=== PATIENT | male | born 1960 | race African-American/Black ===

== ENCOUNTER 2017-08-25 11:20 | Emergency (ER) | payer SELFPAY ==
--- NOTE | 2017-08-25 11:45 | EDM.PDOC ---
ED HPI GENERAL MEDICAL PROBLEM - General Chief Complaint: Upper Extremity Injury/Pain Stated Complaint: PAIN ON FINGERTIPS Time Seen by Provider: 08/25/17 11:38 Source of Information: Reports: Patient, Family History Limitations: Reports: No Limitations - History of Present Illness INITIAL COMMENTS - FREE TEXT/NARRATIVE: History of present illness: []Patient was working on his car for several hours 4 days ago when it snowed and starting having pain to his right fingertips the next day. His pain has worsened. his fingertips have swollen and has drainage from the pad his ring fingertip. Patient's pain is severe he is unable to sleep. Not up-to-date with tetanus he denies any fevers or any pain in his arm or elsewhere. Review of systems: As per history of present illness and below otherwise all systems reviewed and negative. Past medical history: As per history of present illness and as reviewed below otherwise noncontributory. Surgical history: As per history of present illness and as reviewed below otherwise noncontributory. Social history: No reported history of drug or alcohol abuse. Family history: As per history of present illness and as reviewed below otherwise noncontributory. Physical exam: General: Well developed, well nourished in NAD HEENT: Atraumatic, normocephalic, pupils reactive, negative for conjunctival pallor or scleral icterus, mucous membranes moist, throat clear, neck supple, nontender, trachea midline. Lungs: Clear to auscultation, breath sounds equal bilaterally, chest nontender. Heart: S1S2, regular, negative for clicks, rubs, or JVD. Abdomen: Soft, nondistended, nontender. Negative for masses or hepatosplenomegaly. Negative for costovertebral tenderness. Pelvis: Stable nontender. Genitourinary: Deferred. Rectal: Deferred. Extremities: Atraumatic, negative for cords or calf pain. Neurovascular unremarkable. Neuro: Awake, alert, oriented. Cranial nerves II through XII unremarkable. Cerebellum unremarkable. Motor and sensory unremarkable throughout. Exam nonfocal. Diagnostics: [] Therapeutics: []Tetanus updated Impression: []Pulido bite right hand fingertips Plan: []Follow-up with Diamond at Dr. Watt's office on Thursday, tramadol for pain Definitive disposition and diagnosis as appropriate pending reevaluation and review of above. Right Hand Pain Score (Numeric/FACES): 9 - Related Data Allergies Allergy/AdvReac Type Severity Reaction Status Date / Time No Known Allergies Allergy Verified 08/25/17 11:38 Home Meds: Home Meds traMADol [Ultram] 50 mg PO Q8H PRN #16 tablet 08/25/17 [Rx] Social & Family History - Tobacco Use Smoking Status *Q: Current Every Day Smoker Years of Tobacco use: 2 Packs/Tins Daily: 0.5 - Caffeine Use Caffeine Use: Reports: Coffee - Recreational Drug Use Recreational Drug Use: No Review of Systems - Review of Systems Review Of Systems: See Below (See history of present illness) ED EXAM, GENERAL - Physical Exam Exam: See Below (See history of present illness) Course - Vital Signs Last Recorded V/S: Last Vital Signs Temp 98.0 F 08/25/17 11:44 Pulse 77 08/25/17 12:42 Resp 18 08/25/17 12:42 BP 160/98 H 08/25/17 12:42 Pulse Ox 95 08/25/17 11:44 - Orders/Labs/Meds Orders: Active Orders 24 hr Category Date Time Status Blood Glucose Check, Bedside [RC] ONETIME Care 08/25/17 11:48 Active Vaccines to be Administered [RC] PER UNIT ROUTINE Care 08/25/17 12:05 Active Meds: Medications Discontinued Medications Generic Name Dose Route Start Last Admin Trade Name Freq PRN Reason Stop Dose Admin Diphtheria/Tetanus/Acell Pertussis 0.5 ml 08/25/17 12:05 08/25/17 12:35 Adacel IM 08/25/17 12:06 0.5 ml .ONCE ONE Administration Tramadol HCl 50 mg 08/25/17 12:28 08/25/17 12:34 Ultram PO 08/25/17 12:29 50 mg ONETIME ONE Administration Departure - Departure Time of Disposition: 12:12 Disposition: Home, Self-Care 01 Condition: Good Clinical Impression: Frostbite of right hand Qualifiers: Encounter type: initial encounter Qualified Code(s): T33.521A - Superficial frostbite of right hand, initial encounter - Discharge Information Prescriptions: traMADol [Ultram] 50 mg PO Q8H PRN #16 tablet PRN Reason: Pain Referrals: PCP,None [Primary Care Provider] - Forms: ED Department Discharge Additional Instructions: The following information is given to patients seen in the emergency department who are being discharged to home. This information is to outline your options for follow-up care. We provide all patients seen in our emergency department with a follow-up referral. The need for follow-up, as well as the timing and circumstances, are variable depending upon the specifics of your emergency department visit. If you don't have a primary care physician on staff, we will provide you with a referral. We always advise you to contact your personal physician following an emergency department visit to inform them of the circumstance of the visit and for follow-up with them and/or the need for any referrals to a consulting specialist. The emergency department will also refer you to a specialist when appropriate. This referral assures that you have the opportunity for follow-up care with a specialist. All of these measure are taken in an effort to provide you with optimal care, which includes your follow-up. Under all circumstances we always encourage you to contact your private physician who remains a resource for coordinating your care. When calling for follow-up care, please make the office aware that this follow-up is from your recent emergency room visit. If for any reason you are refused follow-up, please contact the [facility] Emergency Department at and asked to speak to the emergency department charge nurse. Tramadol and ibuprofen for pain, follow-up with Diamond at Dr. Watt's office at 1245 on Thursday. [facility] - [facility] [address] [place] [address], [address] [place] [address] Follow-up with primary care physician for further workup of diabetes [facility] [address] [place] [id number] - My Orders Last 24 Hours: My Active Orders 08/25/17 11:48 Blood Glucose Check, Bedside [RC] ONETIME 08/25/17 12:05 Vaccines to be Administered [RC] PER UNIT ROUTINE - Assessment/Plan Last 24 Hours: My Active Orders 08/25/17 11:48 Blood Glucose Check, Bedside [RC] ONETIME 08/25/17 12:05 Vaccines to be Administered [RC] PER UNIT ROUTINE
[2017-08-25] MEDS ORDERED: Diphtheria,Pertussis(Acell),Tetanus Vaccine 0.5 ML Syringe IM ONE (12:05)
[2017-08-25] MEDS ORDERED: traMADol 50 MG Tab PO ONE (12:28)
== END 2017-08-25 13:20 | disposition home or self-care (01) ==
LOC: MW.ED 11:20
DX: T33.521A Superficial frostbite of right hand, initial encounter (principal); F17.210 Nicotine dependence, cigarettes, uncomplicated
CPT/HCPCS: 82962; 90471; 90715; 99283; A9270

== ENCOUNTER 2017-11-06 17:11 | Inpatient (IN) | payer MEDICAID ==
[2017-11-06] MEDS ORDERED: Sodium Chloride 0.9% 500 ML IV SCH (17:15)
--- NOTE | 2017-11-06 17:16 | EDM.PDOC ---
ED HPI GENERAL MEDICAL PROBLEM - General Stated Complaint: WEAKNESS/RT SHOULDER Time Seen by Provider: 11/06/17 17:16 Source of Information: Reports: Patient - History of Present Illness INITIAL COMMENTS - FREE TEXT/NARRATIVE: HISTORY AND PHYSICAL: History of present illness: Patient presents with right upper extremity weakness and dropping things this morning at 06 00 at noon today he was unable to grasp or hold a fork To lunch, symptomologyappears to have resolved since then Patient has no other complaint at current delivery is a history of diabetes and hypertension his glucoses in the 350s range Denies fever nausea vomiting diarrhea constipation chest pain shortness breath headache dizziness palpitation no bowel or urine symptoms He was able to ambulate in the ER get on the exam table he was able to undress and use his finger struck on bottom shirt on the right upper extremity which was previously week unable to grasp objects No TPA as out of the therapeutic window and stroke score is 0 at current Patient does take a daily aspirin and did take aspirin today ] Review of systems: As per history of present illness and below otherwise all systems reviewed and negative. Past medical history: As per history of present illness and as reviewed below otherwise noncontributory. Surgical history: As per history of present illness and as reviewed below otherwise noncontributory. Social history: No reported history of drug or alcohol abuse. Family history: As per history of present illness and as reviewed below otherwise noncontributory. Physical exam: HEENT: Atraumatic, normocephalic, pupils reactive, negative for conjunctival pallor or scleral icterus, mucous membranes moist, throat clear, neck supple, nontender, trachea midline. Lungs: Clear to auscultation, breath sounds equal bilaterally, chest nontender. Heart: S1S2, regular, negative for clicks, rubs, or JVD. Abdomen: Soft, nondistended, nontender. Negative for masses or hepatosplenomegaly. Negative for costovertebral tenderness. Pelvis: Stable nontender. Genitourinary: Deferred. Rectal: Deferred. Extremities: Atraumatic, negative for cords or calf pain. Neurovascular unremarkable. Neuro: Awake, alert, oriented. Cranial nerves II through XII unremarkable. Cerebellum unremarkable. Motor and sensory unremarkable throughout. Exam nonfocal. Diagnostics: [TBC CMP UA cardiac enzymes INR EKG chest [address] ] Therapeutics: [Normal saline 1 25 mL per hour ] Impression: [TIA Stroke score 0 Hyperglycemia Diabetes uncontrolled History of hypertension Definitive disposition and diagnosis as appropriate pending reevaluation and review of above. - Related Data Allergies Allergy/AdvReac Type Severity Reaction Status Date / Time No Known Allergies Allergy Verified 11/06/17 17:24 Home Meds: Home Meds Aspirin [Lo-Dose Aspirin EC] 81 mg PO DAILY 11/06/17 [History] amLODIPine [Norvasc] 5 mg PO DAILY 11/06/17 [History] metFORMIN [Glucophage] 1,000 mg PO DAILY 11/06/17 [History] Social & Family History - Tobacco Use Smoking Status *Q: Current Every Day Smoker Years of Tobacco use: 2 Packs/Tins Daily: 0.5 - Caffeine Use Caffeine Use: Reports: Coffee - Recreational Drug Use Recreational Drug Use: No ED ROS GENERAL - Review of Systems Review Of Systems: ROS reveals no pertinent complaints other than HPI. ED EXAM, GENERAL - Physical Exam Exam: See Below Course - Vital Signs Last Recorded V/S: Last Vital Signs Temp 97.5 F 11/06/17 17:19 Pulse 90 11/06/17 17:19 Resp 18 11/06/17 17:19 BP 172/96 H 11/06/17 17:19 Pulse Ox 98 11/06/17 17:19 - Orders/Labs/Meds Orders: Active Orders 24 hr Category Date Time Status EKG Documentation Completion [RC] STAT Care 11/06/17 17:15 Active Chest 1V Frontal [CR] Stat Exams 11/06/17 17:15 Taken Head wo Cont [CT] Stat Exams 11/06/17 17:15 Taken UA W/MICROSCOPIC [URIN] Stat Lab 11/06/17 17:15 Ordered Sodium Chloride 0.9% [Normal Saline] 500 ml Med 11/06/17 17:15 Active IV STAT Medication Orders Sodium Chloride (Normal Saline) 500 mls @ 999 mls/hr IV STAT ANGELA Last Admin: 11/06/17 17:57 Dose: 999 mls/hr Labs: Laboratory Tests 11/06/17 11/06/17 11/06/17 Range/Units 17:47 17:47 17:47 WBC 9.84 (4.0-11.0) K/uL RBC 5.20 (4.50-5.90) M/uL Hgb 14.3 (13.0-17.0) g/dL Hct 40.3 (38.0-50.0) % MCV 77.5 L (80.0-98.0) fL MCH 27.5 (27.0-32.0) pg MCHC 35.5 (31.0-37.0) g/dL RDW Std Deviation 36.0 (28.0-62.0) fl RDW Coeff of Perry 13 (11.0-15.0) % Plt Count 228 (150-400) K/uL MPV 10.00 (7.40-12.00) fL Neut % (Auto) 55.9 (48.0-80.0) % Lymph % (Auto) 31.3 (16.0-40.0) % Dawes % (Auto) 7.2 (0.0-15.0) % Eos % (Auto) 5.4 (0.0-7.0) % Baso % (Auto) 0.2 (0.0-1.5) % Neut # (Auto) 5.5 (1.4-5.7) K/uL Lymph # (Auto) 3.1 H (0.6-2.4) K/uL Dawes # (Auto) 0.7 (0.0-0.8) K/uL Eos # (Auto) 0.5 (0.0-0.7) K/uL Baso # (Auto) 0.0 (0.0-0.1) K/uL Nucleated RBC % 0.0 /100WBC Nucleated RBCs # 0 K/uL INR 1.09 Sodium 134 L (136-146) mmol/L Potassium 3.9 (3.5-5.1) mmol/L Chloride 102 (98-110) mmol/L Carbon Dioxide 21 (21-31) mmol/L BUN 17 (6.0-23.0) mg/dL Creatinine 1.1 (0.6-1.5) mg/dL Est Cr Clr Drug Dosing TNP Estimated GFR (MDRD) > 60.0 ml/min Glucose 345 H (60-110) mg/dL Calcium 10.3 (8.8-10.8) mg/dL Total Bilirubin 0.4 (0.1-1.5) mg/dL AST 16 (5-40) IU/L ALT 20 (8-54) IU/L Alkaline Phosphatase 85 (40-150) Creatine Kinase 68 (9-236) IU/L CK-MB (CK-2) 0.8 (0-6.6) ng/ml Troponin I < 0.10 (0.0-0.29) NG/ML Total Protein 8.4 H (6.0-8.0) g/dL Albumin 4.3 (3.5-5.0) g/dL Globulin 4.1 H (2.0-3.5) g/dL Albumin/Globulin Ratio 1.1 L (1.3-2.8) Meds: Medications Generic Name Dose Route Start Last Admin Trade Name Freq PRN Reason Stop Dose Admin Sodium Chloride 500 mls @ 999 mls/hr 11/06/17 17:15 11/06/17 17:57 Normal Saline IV 999 mls/hr STAT ANGELA Administration Discontinued Medications Generic Name Dose Route Start Last Admin Trade Name Freq PRN Reason Stop Dose Admin Insulin Human Regular 5 unit 11/06/17 17:31 11/06/17 17:57 Novolin R IVPUSH 11/06/17 17:32 5 units ONETIME ONE Administration Protocol Departure - Departure Time of Disposition: 18:43 Disposition: Refer to Observation Condition: Fair Clinical Impression: TIA (transient ischemic attack) - Discharge Information Referrals: PCP,None [Primary Care Provider] - - My Orders Last 24 Hours: My Active Orders 11/06/17 17:15 EKG Documentation Completion [RC] STAT Chest 1V Frontal [CR] Stat Head wo Cont [CT] Stat UA W/MICROSCOPIC [URIN] Stat Sodium Chloride 0.9% [Normal Saline] 500 ml IV STAT - Assessment/Plan Last 24 Hours: My Active Orders 11/06/17 17:15 EKG Documentation Completion [RC] STAT Chest 1V Frontal [CR] Stat Head wo Cont [CT] Stat UA W/MICROSCOPIC [URIN] Stat Sodium Chloride 0.9% [Normal Saline] 500 ml IV STAT
[2017-11-06] MEDS ORDERED: Insulin Regular, Human 100 Units/ML 10 ML Vial IVPUSH ONE (17:31)
[2017-11-06 18:21] LABS: CHLORIDE,CL 102 mmol/L (98-110); SODIUM,NA 134 mmol/L (136-146)
[2017-11-06] MEDS ORDERED: Ondansetron 4 MG/2 ML SDV IVPUSH PRN (19:52)
[2017-11-06] MEDS ORDERED: Morphine 2 MG/ML Syringe IVPUSH PRN (19:52)
[2017-11-06] MEDS ORDERED: Ondansetron 4 MG Tab.DIS PO PRN (19:52)
[2017-11-06] MEDS ORDERED: Acetaminophen 325 MG Tab PO PRN (19:52)
--- NOTE | 2017-11-06 20:00 | PCM.HP ---
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 with past medical history of hypertension, hyperlipidemia, and type 2 diabetes. 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 Patient states that at approximately 0600 this morning when he awoke he felt weakness on his right side stating that he "had no power". He reports that he was unable to grasp or hold onto a fork while eating but symptoms fully resolved around 1400 this afternoon. He denies any slurring of speech and states weakness was isolated to the right arm and right leg. He then proceeded to come into the emergency department for further evaluation at approximately 1700 this evening. Up until this point patient was feeling his normal self and denies any chest pain, palpitations, shortness breath, syncopal episodes, nausea , vomiting, diarrhea, sore throat, cough, or other signs of systemic infection. He has never had similar episode in the past. He does have a history of hypertension, hyperlipidemia, and type II diabetes. On initial examination in the emergency department his NIH stroke score was 0. In addition, he was out of the therapeutic window for TPA. Patient does not see a provider here in [place] but states that he takes medications regularly for his hypertension, hyperlipidemia and type 2 diabetes. He is not insulin-dependent. He has no know allergies. In the emergency department as above NIH stroke scale of 0. CBC and INR were unremarkable. CMP revealed mild hyperglycemia of 345. Chest x-ray, EKG, and head CT were unremarkable. He was given IV normal saline 500 mL bolus as well as 5 units of insulin for his hyperglycemia. Patient was admitted for suspected TIA. - Related Data Allergies/Adverse Reactions: Allergies Allergy/AdvReac Type Severity Reaction Status Date / Time No Known Allergies Allergy Verified 11/06/17 17:24 Home Medications: Home Meds Aspirin [Lo-Dose Aspirin EC] 81 mg PO DAILY 11/06/17 [History] amLODIPine [Norvasc] 5 mg PO DAILY 11/06/17 [History] metFORMIN [Glucophage] 1,000 mg PO DAILY 11/06/17 [History] Past Medical History Cardiovascular History: Reports: Hypertension Endocrine/Metabolic History: Reports: Diabetes, Type II Social & Family History - Family History Family Medical History: Noncontributory - Tobacco Use Smoking Status *Q: Current Every Day Smoker Years of Tobacco use: 2 Packs/Tins Daily: 0.5 Used Tobacco, but Quit: No Second Hand Smoke Exposure: No - Caffeine Use Caffeine Use: Reports: Coffee, Soda - Alcohol Use Date of Last Drink: 10/30/17 - Recreational Drug Use Recreational Drug Use: No H&P Review of Systems - Review of Systems: Review Of Systems: See Below General: Reports: Weakness. Denies: Fever, Chills, Malaise, Fatigue HEENT: Denies: Dysphasia, Headaches, Sore Throat Pulmonary: Denies: Shortness of Breath, Wheezing, Cough, Sputum, Hemoptysis Cardiovascular: Denies: Chest Pain, Palpitations, Lightheadedness, Syncope Gastrointestinal: Denies: Abdominal Pain, Black Stool, Bloody Stool, Diarrhea, Nausea, Vomiting Genitourinary: Denies: Dysuria, Hematuria Musculoskeletal: Denies: Neck Pain, Leg Pain Skin: Denies: Cyanosis Psychiatric: Denies: Confusion Neurological: Denies: Confusion, Dizziness, Headache, Numbness, Paresthesia, Pre -Existing Deficit, Seizure, Syncope, Tingling, Trouble Speaking, Difficulty Walking, Weakness, Change in Speech, Gait Disturbance Hematologic/Lymphatic: Denies: Anemia Immunologic: Denies: Anaphylaxis Exam - Exam Exam: See Below - Vital Signs Vital Signs: Last Vital Signs Temp 98 F 11/06/17 18:21 Pulse 91 11/06/17 18:21 Resp 16 11/06/17 18:21 BP 146/88 H 11/06/17 18:21 Pulse Ox 97 11/06/17 18:21 Weight: 84 kg - Exam Quality Assessment: DVT Prophylaxis General: Alert, Oriented, Cooperative HEENT: Conjunctiva Clear, EACs Clear, EOMI, Hearing Intact, Mucosa Moist & Callaghan , Nares Patent, Normal Nasal Septum, Posterior Pharynx Clear, PERRLA Neck: Supple, Trachea Midline, 2 Lungs: Clear to Auscultation, Normal Respiratory Effort Cardiovascular: Regular Rate, Regular Rhythm GI/Abdominal Exam: Normal Bowel Sounds, Soft, Non-Tender, No Organomegaly, No Distention (Male) Exam: Deferred Rectal (Males) Exam: Deferred Back Exam: Normal Inspection Extremities: Normal Inspection, Non-Tender, No Pedal Edema, Normal Capillary Refill Peripheral Pulses: 2+: Radial (L), Radial (R), Posterior Tibial (L), Posterior Tibial (R), Dorsalis Pedis (L), Dorsalis Pedis (R) Skin: Warm, Dry, Intact Neurological: Cranial Nerves Intact Neuro Extensive - Mental Status: Alert, Oriented x3, Normal Mood/Affect, Normal Cognition, Memory Intact Neuro Extensive - Motor, Sensory, Reflexes: CN II-XII Intact. No: Ataxia, Tongue Deviation (L), Tongue Deviation (R), Dysarthria, Receptive Aphasia, Expressive Aphasia, Facial palsy (L), Facial Palsy (R), Facial Palsy w Forehead , Facial Palsy wo Forehead, Hemeplagia (R), Hemeplagia (L), Pronator Drift (R), Pronator Drift (L), Abnormal Romberg, Abnormal Finger to Nose, Abnormal Heel to Luz, Abnormal Sensation, Abnormal Light Touch, Abnormal Motor, Babinski, Motor/ Sensory Deficits Psychiatric: Alert, Normal Affect, Normal Mood - Patient Data Lab Results Last 24 hrs: Laboratory Results - last 24 hr 11/06/17 Range/Units 18:47 POC Glucose 247 H (60-110) mg/dL Result Diagrams: 11/06/17 17:47 11/06/17 17:47 *Q Meaningful Use (ADM) - VTE *Q VTE Criteria *Q: - Stroke *Q Stroke Criteria *Q: - AMI *Q AMI Criteria *Q: - Problem List (1) Hypertension SNOMED Code(s): 26330008 ICD Code: I10 - ESSENTIAL (PRIMARY) HYPERTENSION Status: Chronic Priority : Medium Current Visit: Yes Qualifiers: Hypertension type: unspecified Qualified Code(s): I10 - Essential (primary ) hypertension (2) Hyperlipemia SNOMED Code(s): 14095307 ICD Code: E78.5 - HYPERLIPIDEMIA, UNSPECIFIED Status: Chronic Priority: Medium Current Visit: Yes Qualifiers: Hyperlipidemia type: unspecified Qualified Code(s): E78.5 - Hyperlipidemia , unspecified (3) Type 2 diabetes mellitus SNOMED Code(s): 09114021 ICD Code: E11.9 - TYPE 2 DIABETES MELLITUS WITHOUT COMPLICATIONS Status: Chronic Priority: Medium Current Visit: Yes Qualifiers: Diabetes mellitus complication status: without complication Diabetes mellitus skilled nursing insulin use: without stone breaker use Qualified Code(s): E11.9 - Type 2 diabetes mellitus without complications (4) TIA (transient ischemic attack) SNOMED Code(s): 384154126 ICD Code: G45.9 - TRANSIENT CEREBRAL ISCHEMIC ATTACK, UNSPECIFIED Status: Suspected Priority: High Current Visit: Yes Qualifiers: Transient cerebral ischemia type: unspecified Qualified Code(s): G45.9 - Transient cerebral ischemic attack, unspecified Problem List Initiated/Reviewed/Updated: Yes Orders Last 24hrs: Active Orders 24 hr Category Date Time Status Patient Status [ADT] Routine ADT 11/06/17 19:52 Ordered Antiembolic Devices [RC] PER UNIT ROUTINE Care 11/06/17 19:53 Ordered Blood Glucose Check, Bedside [RC] TIDAC Care 11/06/17 19:52 Ordered Oxygen Therapy [RC] PRN Care 11/06/17 19:52 Ordered Telemetry Monitoring [Cardiac Monitoring] [RC] . Care 11/06/17 19:59 Ordered DIRECTED Up With Assistance [RC] ASDIRECTED Care 11/06/17 19:52 Ordered VTE/DVT Education [RC] PER UNIT ROUTINE Care 11/06/17 19:52 Ordered Vital Signs [RC] Q4H Care 11/06/17 19:52 Ordered [employer] Diet [DIET] Diet 11/06/17 Dinner Ordered Ang Head w wo Cont [MR] Routine Exams 11/06/17 19:52 Ordered Ang Neck w wo Cont [MR] Routine Exams 11/06/17 19:52 Ordered Brain w wo Cont [MR] Routine Exams 11/06/17 19:52 Ordered Echo 2D wo Cont [US] Urgent Exams 11/06/17 19:52 Ordered CBC WITH AUTO DIFF [HEME] AM Lab 11/07/17 05:11 Ordered CBC WITH AUTO DIFF [HEME] AM Lab 11/08/17 05:11 Ordered COMPREHENSIVE METABOLIC PN,CMP [CHEM] AM Lab 11/07/17 05:11 Ordered COMPREHENSIVE METABOLIC PN,CMP [CHEM] AM Lab 11/08/17 05:11 Ordered LIPID PANEL [CHEM] AM Lab 11/07/17 05:11 Ordered MAGNESIUM [CHEM] AM Lab 11/07/17 05:11 Ordered PHOSPHORUS [CHEM] AM Lab 11/07/17 05:11 Ordered Acetaminophen [Tylenol] Med 11/06/17 19:52 Ordered 650 mg PO Q4H PRN Heparin Sodium Med 11/06/17 20:00 Ordered 5,000 units SUBCUT Q8H Insulin Aspart [NovoLOG] Med 11/07/17 07:30 Ordered See Protocol SUBCUT TIDAC Morphine Med 11/06/17 19:52 Ordered 2 mg IVPUSH Q2H PRN Ondansetron [Zofran ODT] Med 11/06/17 19:52 Ordered 4 mg PO Q4H PRN Ondansetron [Zofran] Med 11/06/17 19:52 Ordered 4 mg IVPUSH Q4H PRN Sequential Compression Device [OM.PC] Per Unit Routine Oth 11/06/17 19:53 Ordered Resuscitation Status Routine Resus Stat 11/06/17 19:52 Ordered Medication Orders Sodium Chloride (Normal Saline) 500 mls @ 999 mls/hr IV STAT ANGELA Last Admin: 11/06/17 17:57 Dose: 999 mls/hr Assessment/Plan Comment:: 57-year-old female admitted 11/06/17 for suspected TIA with past medical history of hypertension, hyperlipidemia, and type 2 diabetes. TIA: We'll place patient on telemetry, get a fasting lipid panel tomorrow a.m., MRI head with and without contrast, MRA head and neck with and without contrast , echocardiogram heart. Will observe overnight and possibly consult neurology tomorrow pending findings on above studies. We'll continue his aspirin 81 mg as well as his home cholesterol medication when verified. Hypertension: Currently controlled we'll continue home medication Hyperlipidemia: Lipid panel in a.m. as well as restart home cholesterol medication when verified. Type 2 diabetes: Hyperglycemic in emergency department was given [address] on insulin sliding scale medium dose TIDAC blood sugar checks. VTE Proph: SCD, Heparin Dispo: 1-2 days pending.
[2017-11-06] MEDS: Heparin Sodium 5,000 Units/ML Vial SUBCUT SCH (20:30)
[2017-11-07] MEDS: Heparin Sodium 5,000 Units/ML Vial SUBCUT SCH ×3 (04:05→20:57)
[2017-11-07 06:29] LABS: CHLORIDE,CL 105 mmol/L (98-110); SODIUM,NA 136 mmol/L (136-146)
[2017-11-07] MEDS ORDERED: Magnesium Sulfate/Water 2 GM in Premix Bag 1 BAG IV ONE (07:12)
--- NOTE | 2017-11-07 07:12 | PCM.PN ---
- General Info Date of Service: 11/07/17 Admission Dx/Problem (Free Text): Admission Diagnosis/Problem Admission Diagnosis/Problem TIA, Transient ischemic attack Subjective Update: Patient doing well this am. No return of weakness on right side. Eating and eliminating without difficulty. No chest pain, palpitations, sob. No complaints. Functional Status: Reports: Pain Controlled, Tolerating Diet, Ambulating - Review of Systems General: Denies: Fever, Weakness, Fatigue HEENT: Denies: Contact Lenses, Headaches Pulmonary: Denies: Shortness of Breath, Hemoptysis Cardiovascular: Denies: Chest Pain, Palpitations, Edema Gastrointestinal: Denies: Abdominal Pain, Constipation, Diarrhea, Nausea, Vomiting Genitourinary: Denies: Dysuria, Hematuria Musculoskeletal: Denies: Neck Pain, Leg Pain Skin: Denies: Cyanosis Neurological: Denies: Confusion, Dizziness, Headache Psychiatric: Denies: Confusion - Patient Data Vitals - Most Recent: Last Vital Signs Temp 97.8 F 11/07/17 04:00 Pulse 72 11/07/17 04:00 Resp 15 11/07/17 04:00 BP 124/71 11/07/17 04:00 Pulse Ox 95 11/07/17 04:00 Weight - Most Recent: 84 kg I&O - Last 24 Hours: Intake & Output 11/06/17 11/07/17 11/07/17 22:59 06:59 14:59 Intake Total 490 Output Total 775 Balance -285 Lab Results Last 24 Hours: Laboratory Results - last 24 hr 11/06/17 11/06/17 11/07/17 Range/Units 18:47 20:09 05:45 WBC 8.67 (4.0-11.0) K/uL RBC 5.04 (4.50-5.90) M/uL Hgb 13.8 (13.0-17.0) g/dL Hct 39.3 (38.0-50.0) % MCV 78.0 L (80.0-98.0) fL MCH 27.4 (27.0-32.0) pg MCHC 35.1 (31.0-37.0) g/dL RDW Std Deviation 36.8 (28.0-62.0) fl RDW Coeff of Perry 13 (11.0-15.0) % Plt Count 208 (150-400) K/uL MPV 10.00 (7.40-12.00) fL Neut % (Auto) 44.5 L (48.0-80.0) % Lymph % (Auto) 40.8 H (16.0-40.0) % [place] % (Auto) 7.0 (0.0-15.0) % Eos % (Auto) 7.5 H (0.0-7.0) % Baso % (Auto) 0.2 (0.0-1.5) % Neut # (Auto) 3.9 (1.4-5.7) K/uL Lymph # (Auto) 3.5 H (0.6-2.4) K/uL [place] # (Auto) 0.6 (0.0-0.8) K/uL Eos # (Auto) 0.7 (0.0-0.7) K/uL Baso # (Auto) 0.0 (0.0-0.1) K/uL Nucleated RBC % 0.0 /100WBC Nucleated RBCs # 0 K/uL Sodium (136-146) mmol/L Potassium (3.5-5.1) mmol/L Chloride (98-110) mmol/L Carbon Dioxide (21-31) mmol/L BUN (6.0-23.0) mg/dL Creatinine (0.6-1.5) mg/dL Est Cr Clr Drug Dosing mL/min Estimated GFR (MDRD) ml/min Glucose (60-110) mg/dL POC Glucose 247 H 207 H (60-110) mg/dL Calcium (8.8-10.8) mg/dL Phosphorus (2.4-4.7) mg/dL Magnesium (1.5-2.3) mEq/L Total Bilirubin (0.1-1.5) mg/dL AST (5-40) IU/L ALT (8-54) IU/L Alkaline Phosphatase (40-150) Total Protein (6.0-8.0) g/dL Albumin (3.5-5.0) g/dL Globulin (2.0-3.5) g/dL Albumin/Globulin Ratio (1.3-2.8) Triglycerides (10-190) mg/dL Cholesterol (131-240) mg/dL LDL Cholesterol, Calc (60-180) mg/dL VLDL Cholesterol (5-55) mg/dL HDL Cholesterol (40-80) mg/dL Cholesterol/HDL Ratio (3.3-6.0) 11/07/17 11/07/17 Range/Units 05:45 05:47 WBC (4.0-11.0) K/uL RBC (4.50-5.90) M/uL Hgb (13.0-17.0) g/dL Hct (38.0-50.0) % MCV (80.0-98.0) fL MCH (27.0-32.0) pg MCHC (31.0-37.0) g/dL RDW Std Deviation (28.0-62.0) fl RDW Coeff of Perry (11.0-15.0) % Plt Count (150-400) K/uL MPV (7.40-12.00) fL Neut % (Auto) (48.0-80.0) % Lymph % (Auto) (16.0-40.0) % [place] % (Auto) (0.0-15.0) % Eos % (Auto) (0.0-7.0) % Baso % (Auto) (0.0-1.5) % Neut # (Auto) (1.4-5.7) K/uL Lymph # (Auto) (0.6-2.4) K/uL [place] # (Auto) (0.0-0.8) K/uL Eos # (Auto) (0.0-0.7) K/uL Baso # (Auto) (0.0-0.1) K/uL Nucleated RBC % /100WBC Nucleated RBCs # K/uL Sodium 136 (136-146) mmol/L Potassium 4.0 (3.5-5.1) mmol/L Chloride 105 (98-110) mmol/L Carbon Dioxide 21 (21-31) mmol/L BUN 15 (6.0-23.0) mg/dL Creatinine 1.0 (0.6-1.5) mg/dL Est Cr Clr Drug Dosing 86.45 mL/min Estimated GFR (MDRD) > 60.0 ml/min Glucose 314 H (60-110) mg/dL POC Glucose 302 H (60-110) mg/dL Calcium 9.5 (8.8-10.8) mg/dL Phosphorus 3.3 (2.4-4.7) mg/dL Magnesium 1.4 L (1.5-2.3) mEq/L Total Bilirubin 0.5 (0.1-1.5) mg/dL AST 14 (5-40) IU/L ALT 19 (8-54) IU/L Alkaline Phosphatase 75 (40-150) Total Protein 7.1 (6.0-8.0) g/dL Albumin 3.8 (3.5-5.0) g/dL Globulin 3.3 (2.0-3.5) g/dL Albumin/Globulin Ratio 1.2 L (1.3-2.8) Triglycerides 368 H (10-190) mg/dL Cholesterol 186 (131-240) mg/dL LDL Cholesterol, Calc 78 (60-180) mg/dL VLDL Cholesterol 74 H (5-55) mg/dL HDL Cholesterol 34 L (40-80) mg/dL Cholesterol/HDL Ratio 5.5 (3.3-6.0) Med Orders - Current: Current Medications Acetaminophen (Tylenol) 650 mg PO Q4H PRN PRN Reason: Pain (Mild 1-3)/fever Amlodipine Besylate (Norvasc) 5 mg PO DAILY [facility] Aspirin (Halfprin) 81 mg PO DAILY [facility] Heparin Sodium (Porcine) (Heparin Sodium) 5,000 units SUBCUT Q8H [facility] Last Admin: 11/07/17 04:05 Dose: 5,000 units Sodium Chloride (Normal Saline) 500 mls @ 999 mls/hr IV STAT [facility] Last Admin: 11/06/17 17:57 Dose: 999 mls/hr Insulin Aspart (Novolog) 0 unit SUBCUT TIDAC [facility] PRN Reason: Protocol Morphine Sulfate (Morphine) 2 mg IVPUSH Q2H PRN PRN Reason: Pain (severe 7-10) Stop: 11/07/17 19:53 Ondansetron HCl (Zofran Odt) 4 mg PO Q4H PRN PRN Reason: nausea, able to take PO Ondansetron HCl (Zofran) 4 mg IVPUSH Q4H PRN PRN Reason: Nausea Discontinued Medications Insulin Human Regular (Novolin R) 5 unit IVPUSH ONETIME ONE PRN Reason: Protocol Stop: 11/06/17 17:32 Last Admin: 11/06/17 17:57 Dose: 5 units - Exam Quality Assessment: DVT Prophylaxis General: Alert, Oriented, Cooperative, No Acute Distress HEENT: Pupils Equal, Pupils Reactive, EOMI, Mucous Membr. Moist/[place] Neck: Supple, Trachea Midline, No JVD Lungs: Clear to Auscultation, Normal Respiratory Effort Cardiovascular: Regular Rate, Regular Rhythm GI/Abdominal Exam: Normal Bowel Sounds, Soft, Non-Tender, No Organomegaly, No Distention (Male) Exam: Deferred Back Exam: Normal Inspection Extremities: Normal Inspection, Non-Tender, No Pedal Edema, Normal Capillary Refill Peripheral Pulses: 2+: Radial (L), Radial (R), Posterior Tibial (L), Posterior Tibial (R), Dorsalis Pedis (L), Dorsalis Pedis (R) Skin: Warm, Dry, Intact Neurological: No New Focal Deficit, Normal Speech, Normal Tone, Strength Equal Bilateral, Sensation Intact, Cranial Nerves Intact Psy/Mental Status: Alert, Normal Affect, Normal Mood - Problem List & Annotations (1) Hypertension SNOMED Code(s): 85205061 Code(s): I10 - ESSENTIAL (PRIMARY) HYPERTENSION Status: Chronic Priority : Medium Current Visit: Yes Qualifiers: Hypertension type: unspecified Qualified Code(s): I10 - Essential (primary ) hypertension (2) Hyperlipemia SNOMED Code(s): 23138257 Code(s): E78.5 - HYPERLIPIDEMIA, UNSPECIFIED Status: Chronic Priority: Medium Current Visit: Yes Qualifiers: Hyperlipidemia type: unspecified Qualified Code(s): E78.5 - Hyperlipidemia , unspecified (3) Type 2 diabetes mellitus SNOMED Code(s): 37051995 Code(s): E11.9 - TYPE 2 DIABETES MELLITUS WITHOUT COMPLICATIONS Status: Chronic Priority: Medium Current Visit: Yes Qualifiers: Diabetes mellitus complication status: without complication Diabetes mellitus terminal carman insulin use: without terminal carman use Qualified Code(s): E11.9 - Type 2 diabetes mellitus without complications (4) TIA (transient ischemic attack) SNOMED Code(s): 633997327 Code(s): G45.9 - TRANSIENT CEREBRAL ISCHEMIC ATTACK, UNSPECIFIED Status: Suspected Priority: High Current Visit: Yes Qualifiers: Transient cerebral ischemia type: unspecified Qualified Code(s): G45.9 - Transient cerebral ischemic attack, unspecified - Problem List Review Problem List Initiated/Reviewed/Updated: Yes - My Orders Last 24 Hours: My Active Orders 11/06/17 19:52 Patient Status [ADT] Routine Blood Glucose Check, Bedside [RC] TIDAC Oxygen Therapy [RC] PRN Up With Assistance [RC] ASDIRECTED VTE/DVT Education [RC] PER UNIT ROUTINE Vital Signs [RC] Q4H Ang Head w wo Cont [MR] Routine Ang Neck w wo Cont [MR] Routine Brain w wo Cont [MR] Routine Echo 2D wo Cont [US] Urgent Acetaminophen [Tylenol] 650 mg PO Q4H PRN Morphine 2 mg IVPUSH Q2H PRN Ondansetron [Zofran ODT] 4 mg PO Q4H PRN Ondansetron [Zofran] 4 mg IVPUSH Q4H PRN Resuscitation Status Routine 11/06/17 19:53 Antiembolic Devices [RC] PER UNIT ROUTINE Sequential Compression Device [OM.PC] Per Unit Routine 11/06/17 19:59 Telemetry Monitoring [Cardiac Monitoring] [RC] . DIRECTED 11/06/17 20:00 Heparin Sodium 5,000 units SUBCUT Q8H 11/06/17 Dinner [employer] Diet [DIET] 11/07/17 07:30 Insulin Aspart [NovoLOG] See Protocol SUBCUT TIDAC 11/07/17 09:00 Aspirin [Halfprin] 81 mg PO DAILY amLODIPine [Norvasc] 5 mg PO DAILY 11/08/17 05:11 CBC WITH AUTO DIFF [HEME] AM COMPREHENSIVE METABOLIC PN,CMP [CHEM] AM - Plan Plan:: 57-year-old female admitted 11/06/17 for suspected TIA with past medical history of hypertension, hyperlipidemia, and type 2 diabetes. TIA: No return of symptoms. No significant changes on telemetry overnight. As per nursing we are unable to get MRI head with and without contrast, MRA head and neck with and without contrast until Thursday. Did talk with Dr. Mixon, neurologist Sara Allen, who stated that as long as patient is not having any new symptoms it is okay to wait until Thursday to get MRI MRA studies. Echocardiogram heart is scheduled for today as not taken last evening when initially ordered. Lipid panel revealed total cholesterol 186, LDL 78, HDL 34, Triglycerides 368. Will cont. ASA 81 mg as well as Atorvastatin 10 mg q day as home chelesterol medication is unknown. May have to increase Atorvastatin but will wait at this time. Cont. to observe. Hypertension: Currently controlled we'll continue home medication Hyperlipidemia: Total cholesterol 186, LDL 78, HDL 34, Triglycerides 368. Unable to verify home statin so started Atovastatin 10 mg po q day while inpatient. Will most likely need to start triglyceride lower agent as well before discharge. Uncontrolled Type 2 diabetes: HgbA1C 11.2 Have changed from medium dose to high dose ISS. Also consulted Diabetic education as patient most likely will need to be on Insulin in the future. VTE Proph: SCD, Heparin Dispo: 1-2 days pending.
[2017-11-07] MEDS ORDERED: Insulin Aspart 100 Units/ML 3 ML Pen SUBCUT SCH (07:30)
[2017-11-07] MEDS: Insulin Aspart 100 Units/ML 3 ML Pen SUBCUT SCH ×3 (07:53→17:22)
[2017-11-07] MEDS: amLODIPine 5 MG Tab PO SCH (10:00)
[2017-11-07] MEDS: Aspirin 81 MG Tab.EC PO SCH (10:00)
[2017-11-07] MEDS: atorvaSTATin 10 MG Tab PO SCH (20:57)
[2017-11-08] MEDS: Heparin Sodium 5,000 Units/ML Vial SUBCUT SCH ×3 (04:09→20:22)
[2017-11-08 06:43] LABS: CHLORIDE,CL 103 mmol/L (98-110); SODIUM,NA 134 mmol/L (136-146)
[2017-11-08] MEDS: Insulin Aspart 100 Units/ML 3 ML Pen SUBCUT SCH ×3 (06:51→17:17)
[2017-11-08] MEDS: amLODIPine 5 MG Tab PO SCH (08:11)
[2017-11-08] MEDS: Aspirin 81 MG Tab.EC PO SCH (08:11)
--- NOTE | 2017-11-08 09:29 | PCM.PN ---
- General Info Date of Service: 11/08/17 Admission Dx/Problem (Free Text): Admission Diagnosis/Problem Admission Diagnosis/Problem TIA, Transient ischemic attack Subjective Update: Doing well this morning. States that he still feels sometime weak with his right arm but nothing like it was on day of admission. Otherwise doing well. Denies any chest pain, palpitations, sob, eating and eliminating without difficulty. Functional Status: Reports: Pain Controlled, Tolerating Diet - Review of Systems General: Reports: Weakness. Denies: Fever, Fatigue, Malaise HEENT: Denies: Dysphasia, Headaches, Visual Changes Pulmonary: Denies: Shortness of Breath, Hemoptysis Cardiovascular: Denies: Chest Pain, Palpitations, Edema Gastrointestinal: Denies: Abdominal Pain, Constipation, Diarrhea, Nausea, Vomiting Genitourinary: Denies: Dysuria, Hematuria Musculoskeletal: Denies: Neck Pain, Leg Pain Skin: Denies: Cyanosis Neurological: Reports: Weakness. Denies: Confusion, Dizziness, Headache Psychiatric: Denies: Confusion - Patient Data Vitals - Most Recent: Last Vital Signs Temp 208.9 F H 11/08/17 08:00 Pulse 82 11/08/17 08:00 Resp 17 11/08/17 08:00 BP 124/76 11/08/17 08:11 Pulse Ox 97 11/08/17 08:00 Weight - Most Recent: 84 kg I&O - Last 24 Hours: Intake & Output 11/07/17 11/08/17 11/08/17 22:59 06:59 14:59 Intake Total 750 1000 Output Total 1000 800 Balance -250 200 Lab Results Last 24 Hours: Laboratory Results - last 24 hr 11/07/17 11/07/17 11/08/17 Range/Units 12:01 16:32 00:22 WBC (4.0-11.0) K/uL RBC (4.50-5.90) M/uL Hgb (13.0-17.0) g/dL Hct (38.0-50.0) % MCV (80.0-98.0) fL MCH (27.0-32.0) pg MCHC (31.0-37.0) g/dL RDW Std Deviation (28.0-62.0) fl RDW Coeff of [place] (11.0-15.0) % Plt Count (150-400) K/uL MPV (7.40-12.00) fL Neut % (Auto) (48.0-80.0) % Lymph % (Auto) (16.0-40.0) % [place] % (Auto) (0.0-15.0) % Eos % (Auto) (0.0-7.0) % Baso % (Auto) (0.0-1.5) % Neut # (Auto) (1.4-5.7) K/uL Lymph # (Auto) (0.6-2.4) K/uL [place] # (Auto) (0.0-0.8) K/uL Eos # (Auto) (0.0-0.7) K/uL Baso # (Auto) (0.0-0.1) K/uL Nucleated RBC % /100WBC Nucleated RBCs # K/uL Sodium (136-146) mmol/L Potassium (3.5-5.1) mmol/L Chloride (98-110) mmol/L Carbon Dioxide (21-31) mmol/L BUN (6.0-23.0) mg/dL Creatinine (0.6-1.5) mg/dL Est Cr Clr Drug Dosing mL/min Estimated GFR (MDRD) ml/min Glucose (60-110) mg/dL POC Glucose 260 H 323 H 247 H (60-110) mg/dL Calcium (8.8-10.8) mg/dL Total Bilirubin (0.1-1.5) mg/dL AST (5-40) IU/L ALT (8-54) IU/L Alkaline Phosphatase (40-150) Total Protein (6.0-8.0) g/dL Albumin (3.5-5.0) g/dL Globulin (2.0-3.5) g/dL Albumin/Globulin Ratio (1.3-2.8) 11/08/17 11/08/17 11/08/17 Range/Units 05:20 05:20 05:54 WBC 8.65 (4.0-11.0) K/uL RBC 5.07 (4.50-5.90) M/uL Hgb 13.8 (13.0-17.0) g/dL Hct 39.7 (38.0-50.0) % MCV 78.3 L (80.0-98.0) fL MCH 27.2 (27.0-32.0) pg MCHC 34.8 (31.0-37.0) g/dL RDW Std Deviation 37.1 (28.0-62.0) fl RDW Coeff of [place] 13 (11.0-15.0) % Plt Count 211 (150-400) K/uL MPV 10.10 (7.40-12.00) fL Neut % (Auto) 42.9 L (48.0-80.0) % Lymph % (Auto) 40.6 H (16.0-40.0) % [place] % (Auto) 9.0 (0.0-15.0) % Eos % (Auto) 7.4 H (0.0-7.0) % Baso % (Auto) 0.1 (0.0-1.5) % Neut # (Auto) 3.7 (1.4-5.7) K/uL Lymph # (Auto) 3.5 H (0.6-2.4) K/uL [place] # (Auto) 0.8 (0.0-0.8) K/uL Eos # (Auto) 0.6 (0.0-0.7) K/uL Baso # (Auto) 0.0 (0.0-0.1) K/uL Nucleated RBC % 0.0 /100WBC Nucleated RBCs # 0 K/uL Sodium 134 L (136-146) mmol/L Potassium 3.9 (3.5-5.1) mmol/L Chloride 103 (98-110) mmol/L Carbon Dioxide 22 (21-31) mmol/L BUN 16 (6.0-23.0) mg/dL Creatinine 1.0 (0.6-1.5) mg/dL Est Cr Clr Drug Dosing 86.45 mL/min Estimated GFR (MDRD) > 60.0 ml/min Glucose 332 H (60-110) mg/dL POC Glucose 304 H (60-110) mg/dL Calcium 9.5 (8.8-10.8) mg/dL Total Bilirubin 0.4 (0.1-1.5) mg/dL AST 14 (5-40) IU/L ALT 19 (8-54) IU/L Alkaline Phosphatase 71 (40-150) Total Protein 7.1 (6.0-8.0) g/dL Albumin 3.7 (3.5-5.0) g/dL Globulin 3.4 (2.0-3.5) g/dL Albumin/Globulin Ratio 1.1 L (1.3-2.8) Med Orders - Current: Current Medications Acetaminophen (Tylenol) 650 mg PO Q4H PRN PRN Reason: Pain (Mild 1-3)/fever Amlodipine Besylate (Norvasc) 5 mg PO DAILY [facility] Last Admin: 11/08/17 08:11 Dose: 5 mg Aspirin (Halfprin) 81 mg PO DAILY [facility] Last Admin: 11/08/17 08:11 Dose: 81 mg Atorvastatin Calcium (Lipitor) 10 mg PO BEDTIME [facility] Last Admin: 11/07/17 20:57 Dose: 10 mg Heparin Sodium (Porcine) (Heparin Sodium) 5,000 units SUBCUT Q8H [facility] Last Admin: 11/08/17 04:09 Dose: 5,000 units Sodium Chloride (Normal Saline) 500 mls @ 999 mls/hr IV STAT [facility] Last Admin: 11/06/17 17:57 Dose: 999 mls/hr Insulin Aspart (Novolog) 0 unit SUBCUT TIDAC [facility] PRN Reason: Protocol Last Admin: 11/08/17 06:51 Dose: 12 units Ondansetron HCl (Zofran Odt) 4 mg PO Q4H PRN PRN Reason: nausea, able to take PO Ondansetron HCl (Zofran) 4 mg IVPUSH Q4H PRN PRN Reason: Nausea Discontinued Medications Magnesium Sulfate 2 gm/ Premix 50 mls @ 25 mls/hr IV ONETIME ONE Stop: 11/07/17 09:11 Last Admin: 11/07/17 07:38 Dose: 25 mls/hr Insulin Aspart (Novolog) 0 unit SUBCUT TIDAC [facility] PRN Reason: Protocol Insulin Human Regular (Novolin R) 5 unit IVPUSH ONETIME ONE PRN Reason: Protocol Stop: 11/06/17 17:32 Last Admin: 11/06/17 17:57 Dose: 5 units Morphine Sulfate (Morphine) 2 mg IVPUSH Q2H PRN PRN Reason: Pain (severe 7-10) Stop: 11/07/17 19:53 - Exam Quality Assessment: DVT Prophylaxis General: Alert, Oriented, Cooperative, No Acute Distress HEENT: Pupils Equal, Pupils Reactive, EOMI, Mucous Membr. Moist/[place] Neck: Supple Lungs: Clear to Auscultation, Normal Respiratory Effort Cardiovascular: Regular Rate, Regular Rhythm GI/Abdominal Exam: Normal Bowel Sounds, Soft, Non-Tender, No Organomegaly, No Distention (Male) Exam: Deferred Back Exam: Normal Inspection Extremities: Normal Inspection, Non-Tender, No Pedal Edema, Normal Capillary Refill Peripheral Pulses: 2+: Radial (L), Radial (R), Posterior Tibial (L), Posterior Tibial (R), Dorsalis Pedis (L), Dorsalis Pedis (R) Skin: Warm, Dry, Intact Neurological: No New Focal Deficit, Normal Speech, Normal Tone, Strength Equal Bilateral, Sensation Intact, Cranial Nerves Intact Psy/Mental Status: Alert, Normal Affect, Normal Mood - Problem List & Annotations (1) Hypertension SNOMED Code(s): 63637522 Code(s): I10 - ESSENTIAL (PRIMARY) HYPERTENSION Status: Chronic Priority : Medium Current Visit: Yes Qualifiers: Hypertension type: unspecified Qualified Code(s): I10 - Essential (primary ) hypertension (2) Hyperlipemia SNOMED Code(s): 29461306 Code(s): E78.5 - HYPERLIPIDEMIA, UNSPECIFIED Status: Chronic Priority: Medium Current Visit: Yes Qualifiers: Hyperlipidemia type: unspecified Qualified Code(s): E78.5 - Hyperlipidemia , unspecified (3) Type 2 diabetes mellitus SNOMED Code(s): 60958314 Code(s): E11.9 - TYPE 2 DIABETES MELLITUS WITHOUT COMPLICATIONS Status: Chronic Priority: Medium Current Visit: Yes Qualifiers: Diabetes mellitus complication status: without complication Diabetes mellitus intermediate insulin use: without intermediate use Qualified Code(s): E11.9 - Type 2 diabetes mellitus without complications (4) TIA (transient ischemic attack) SNOMED Code(s): 463360594 Code(s): G45.9 - TRANSIENT CEREBRAL ISCHEMIC ATTACK, UNSPECIFIED Status: Suspected Priority: High Current Visit: Yes Qualifiers: Transient cerebral ischemia type: unspecified Qualified Code(s): G45.9 - Transient cerebral ischemic attack, unspecified - Problem List Review Problem List Initiated/Reviewed/Updated: Yes - My Orders Last 24 Hours: My Active Orders 11/07/17 09:00 Aspirin [Halfprin] 81 mg PO DAILY amLODIPine [Norvasc] 5 mg PO DAILY 11/07/17 10:01 Consult to Religion Instructor [Consult to Diabetic Nurse Specialist] [CONS] Routine 11/07/17 21:00 atorvaSTATin [Lipitor] 10 mg PO BEDTIME 11/08/17 09:28 Patient Status [ADT] Stat - Plan Plan:: 57-year-old female admitted 11/06/17 for suspected TIA with past medical history of hypertension, hyperlipidemia, and type 2 diabetes. TIA: No return of symptoms of intial symptoms but still feels weak on right arm. MRI, MRA head and neck, echocardiogram scheduled for tomorrow. Unable to obtain studies over weekend. Lipid panel:total cholesterol 186, LDL 78, HDL 34 , Triglycerides 368. Cont. ASA 81 mg as well as Atorvastatin 10 mg q day as home cholesterol medication is unknown. May have to increase Atorvastatin but will wait at this time. Cont. to observe. Hypertension: Currently controlled we'll continue home medication Hyperlipidemia: Total cholesterol 186, LDL 78, HDL 34, Triglycerides 368. Unable to verify home statin so started Atovastatin 10 mg po q day while inpatient. Will most likely need to start triglyceride lower agent as well before discharge. Uncontrolled Type 2 diabetes: HgbA1C 11.2 Cont. high dose ISS. Diabetic education consulted and hopefully will see patient tomorrow as most likely will need to be on Insulin in the future. VTE Proph: SCD, Heparin Dispo: 1-2 days pending.
[2017-11-08] MEDS: atorvaSTATin 10 MG Tab PO SCH (20:22)
[2017-11-09] MEDS: Heparin Sodium 5,000 Units/ML Vial SUBCUT SCH ×2 (05:00→11:51)
[2017-11-09] MEDS: Insulin Aspart 100 Units/ML 3 ML Pen SUBCUT SCH ×3 (06:52→17:58)
--- NOTE | 2017-11-09 08:43 | CT ---
EXAM DATE: 11/08/17 PATIENT'S AGE: 57 Patient: ALEX TORRES Facility: [place], [place] Site . Site : 1960 Study: CT Head STROKE PROTOCOL [id number]/23/2018 5:27:35 PM Ordering Physician: Bartolo Bills Final Report: INDICATION: Stroke TECHNIQUE: Non-contrast CT of the head is submitted. No comparisons. FINDINGS: The ventricles, sulci and gyri are of normal size, shape and contour. Midline structures are centrally located. No convincing evidence of intra- or extra- axial fluid collections. IMPRESSION: 1. No radiographic evidence of acute intracranial abnormalities. Dictated by Andrew Malloy MD @ 11/06/2017 5:33:19 PM Dictated by: Andrew Malloy MD @ 11/06/2017 17:33:37 (Electronic Signature) Report Signed by Proxy. MTDHunter
--- NOTE | 2017-11-09 08:44 | CR ---
EXAM DATE: 11/08/17 PATIENT'S AGE: 57 Patient: ALEX TORRES Facility: [place], [place] Site . Site : 1960 Study: XRay Chest [id number]/23/2018 5:29:42 PM Ordering Physician: Bartolo Bills Final Report: HISTORY: Stroke code. FINDINGS: AP portable chest radiograph demonstrates a normal cardiac silhouette. Pulmonary vasculature is free of cephalization. No lobar consolidation or pleural effusion is seen. There is mild pito discal spurring in the thoracic spine. IMPRESSION: No acute cardiopulmonary disease. Dictated by Cheryl Ac MD @ 11/06/2017 5:52:42 PM Dictated by: Cheryl Ac MD @ 11/06/2017 17:52:46 (Electronic Signature) Report Signed by Proxy. [facility]ITAL[facility]unter
[2017-11-09 09:42] LABS: CHLORIDE,CL 104 mmol/L (98-110); SODIUM,NA 136 mmol/L (136-146)
[2017-11-09] MEDS: Gadobenate Dimeglumine 529 MG/ML 20 ML SDV IVPUSH STA ×2 (10:32→12:47)
[2017-11-09] MEDS: amLODIPine 5 MG Tab PO SCH (11:49)
[2017-11-09] MEDS: Aspirin 81 MG Tab.EC PO SCH (11:49)
--- NOTE | 2017-11-09 15:25 | MR ---
EXAMINATION: MR of the head without contrast, MRA head and neck without contrast. TECHNIQUE: Multiplanar and multisequence imaging of the head without intravenous contrast. Diffusion weighted sequences were performed. Avmn-ow-ieelxe imaging obtained through the head and neck without contrast. MIP imaging obtained. The patient refused contrast. HISTORY: TIA. FINDINGS: MRI head: The cerebral hemispheres and deep nuclei are without hemorrhage, mass, edema or atrophy. Mu ltiple small T2 FLAIR hyperintensities in the white matter likely small areas of chronic ischemia. Th ere is a small focal area of diffusion restriction within the left periventricular region. No extraaxial collections or hemorrhage. The ventricular system is of normal size and configuration without hydrocephalus. The brainstem and cerebellum are without hemorrhage, mass, edema, gliosis or atrophy. The carotid an d basilar artery flow voids are intact. Venous sinuses are patent. The otomastoid airspaces are clear. No internal auditory canal or cerebellopontine angle masses. Mod erate mucosal thickening noted within the paranasal sinuses without air-fluid levels. The craniocervi kate junction is unremarkable. MRA head: The distal internal carotid arteries appear grossly patent. The middle, anterior, and poste rior cerebral arteries appear normal. Anterior and posterior communicating arteries are normal. No si gnificant area of stenosis or aneurysm identified. MRA neck: There is a normal three-vessel origin on the aortic arch. The left vertebral artery is mild ly dominant. The common carotid arteries are normal without significant atheromatous narrowing. The b ulbs and external carotid arteries appear normal. The internal carotid arteries appear normal in [place] bhavna. IMPRESSION: 1. Small likely acute left periventricular lacunar infarct. 2. Mild small vessel ischemic changes noted. 3. Moderate paranasal sinus disease. 4. Grossly unremarkable anterior and extracranial arterial circulation.
--- NOTE | 2017-11-09 18:42 | PCM.DCSUM1 ---
Discharge Summary - Hospital Course HPI Initial Comments: Discharge Summary Date of admission: 11/06/2017 Date of discharge: 11/09/2017 Admitting diagnosis: #1. Possible transient ischemic attack, patient reporting right-sided weakness and facial droop that resolved prior to coming in to ER #2. Past medical history of hypertension, hyperlipidemia, type 2 diabetes with noncompliance to type 2 diabetes medication secondary to inability to afford insulin. #3. #4. #5. Discharge diagnoses: #1. Small acute left periventricular low back infarct #2. Right-sided weakness prior to admission that has now self resolved #3. Past medical history of hypertension, hyperlipidemia, type 2 diabetes mellitus #4. #5. Consultations: None Procedures: None Hospitalization course: Patient was admitted on 11/06/2017 secondary to TIA type symptoms that the patient had suffered prior to coming into the ER. Patient stated that his TIA symptoms which included right-sided weakness and facial droop had resolved about 3 hours before entering the ER. Patient was admitted for stroke workup, patient was also noted to have elevated blood sugar levels which we found out was secondary to patient's inability to afford insulin which has already been discussed with diabetic management. Patient is on metformin, aspirin, simvastatin. Patient did not have any further TIA episodes while in the hospital. Unfortunately due to admission related issues patient was not able to have an MRA of the neck and head as well as MRI of the brain and echo done until 11/09/2017. Cardiogram did not show any major valve defect or etiology that would attributed to stroke type symptoms. MRI did indicate a left periventricular lacunar infarct. MRA of the neck shows normal 3 vessel origin with possible mild small vessel ischemic changes. Decision was made to discharge the patient on 11/09/2017 with close follow-up with neurology as well as establishment of primary care with Dr. Rodríguez. I did speak with neurology in [place] Dr. Gutierrez formly known as Dr. Blank. Neurology was told of the patient's financial difficulties and affording medication and neurology stated that the patient has not been on aspirin prior to admission that it is safe to only do 81 mg aspirin daily along with controlling risk factors including type 2 diabetes, hypertension and its type of central sleep apnea. The patient has been on aspirin that it is okay to also adequate. The patient can't afford to do so. Main things to do is control patient's risk factors. Disposition on discharge: Home Condition on discharge: Stable Discharge medications: Metformin, glipizide, aspirin, clopidogrel, simvastatin Follow-up instructions: Follow-up with Dr. Rodríguez to establish PCP care, and Dr. Mckee with neurology - Discharge Data Discharge Date: 11/09/17 Discharge Disposition: Home, Self-Care 01 Condition: Fair - Patient Instructions Diet: Heart Healthy Diet Activity: As Tolerated Driving: Do Not Drive Showering/Bathing: May Shower Notify Provider of: Fever, Increased Pain, Swelling and Redness, Nausea and/or Vomiting - Discharge Plan Prescriptions/Med Rec: amLODIPine [Norvasc] 5 mg PO DAILY 30 Days #30 tablet Aspirin [Halfprin] 81 mg PO DAILY 30 Days #30 tab.ec atorvaSTATin [Lipitor] 20 mg PO BEDTIME 30 Days #30 tablet Clopidogrel Bisulfate [Clopidogrel] 75 mg PO DAILY 30 Days #30 tablet glipiZIDE [Glipizide ER] 5 mg PO DAILY 30 Days #30 tab.er.24 metFORMIN [Glucophage] 1,000 mg PO DAILY 30 Days #30 tablet Home Medications: Home Meds Aspirin [Lo-Dose Aspirin EC] 81 mg PO DAILY 11/06/17 [History] Aspirin [Halfprin] 81 mg PO DAILY 30 Days #30 tab.ec 11/09/17 [Rx] Clopidogrel Bisulfate [Clopidogrel] 75 mg PO DAILY 30 Days #30 tablet 11/09/17 [ Rx] amLODIPine [Norvasc] 5 mg PO DAILY 30 Days #30 tablet 11/09/17 [Rx] atorvaSTATin [Lipitor] 20 mg PO BEDTIME 30 Days #30 tablet 11/09/17 [Rx] glipiZIDE [Glipizide ER] 5 mg PO DAILY 30 Days #30 tab.er.24 11/09/17 [Rx] metFORMIN [Glucophage] 1,000 mg PO DAILY 30 Days #30 tablet 11/09/17 [Rx] Referrals: Bernard Rodríguez MD [Resident] - 11/18/17 3:30 pm Kenyatta Mckee MD [Physician] - 01/14/18 3:00 pm - Discharge Summary/Plan Comment DC Time >30 min.: No - Patient Data Vitals - Most Recent: Last Vital Signs Temp 36.8 C 11/09/17 15:00 Pulse 70 11/09/17 15:00 Resp 20 11/09/17 15:00 BP 134/77 11/09/17 15:00 Pulse Ox 98 11/09/17 15:00 Weight - Most Recent: 84 kg I&O - Last 24 hours: Intake & Output 11/09/17 11/09/17 11/09/17 06:59 14:59 22:59 Intake Total 600 1350 Output Total 1850 Balance 600 -500 Lab Results - Last 24 hrs: Laboratory Results - last 24 hr 11/08/17 11/09/17 11/09/17 Range/Units 21:11 06:15 09:07 WBC 7.62 (4.0-11.0) K/uL RBC 5.15 (4.50-5.90) M/uL Hgb 14.1 (13.0-17.0) g/dL Hct 40.2 (38.0-50.0) % MCV 78.1 L (80.0-98.0) fL MCH 27.4 (27.0-32.0) pg MCHC 35.1 (31.0-37.0) g/dL RDW Std Deviation 36.6 (28.0-62.0) fl RDW Coeff of [place] 13 (11.0-15.0) % Plt Count 204 (150-400) K/uL MPV 9.90 (7.40-12.00) fL Neut % (Auto) 47.3 L (48.0-80.0) % Lymph % (Auto) 35.6 (16.0-40.0) % [place] % (Auto) 8.8 (0.0-15.0) % Eos % (Auto) 8.0 H (0.0-7.0) % Baso % (Auto) 0.3 (0.0-1.5) % Neut # (Auto) 3.6 (1.4-5.7) K/uL Lymph # (Auto) 2.7 H (0.6-2.4) K/uL [place] # (Auto) 0.7 (0.0-0.8) K/uL Eos # (Auto) 0.6 (0.0-0.7) K/uL Baso # (Auto) 0.0 (0.0-0.1) K/uL Nucleated RBC % 0.0 /100WBC Nucleated RBCs # 0 K/uL Sodium (136-146) mmol/L Potassium (3.5-5.1) mmol/L Chloride (98-110) mmol/L Carbon Dioxide (21-31) mmol/L BUN (6.0-23.0) mg/dL Creatinine (0.6-1.5) mg/dL Est Cr Clr Drug Dosing mL/min Estimated GFR (MDRD) ml/min Glucose (60-110) mg/dL POC Glucose 315 H 259 H (60-110) mg/dL Calcium (8.8-10.8) mg/dL 11/09/17 11/09/17 11/09/17 Range/Units 09:07 11:39 16:17 WBC (4.0-11.0) K/uL RBC (4.50-5.90) M/uL Hgb (13.0-17.0) g/dL Hct (38.0-50.0) % MCV (80.0-98.0) fL MCH (27.0-32.0) pg MCHC (31.0-37.0) g/dL RDW Std Deviation (28.0-62.0) fl RDW Coeff of [place] (11.0-15.0) % Plt Count (150-400) K/uL MPV (7.40-12.00) fL Neut % (Auto) (48.0-80.0) % Lymph % (Auto) (16.0-40.0) % [place] % (Auto) (0.0-15.0) % Eos % (Auto) (0.0-7.0) % Baso % (Auto) (0.0-1.5) % Neut # (Auto) (1.4-5.7) K/uL Lymph # (Auto) (0.6-2.4) K/uL [place] # (Auto) (0.0-0.8) K/uL Eos # (Auto) (0.0-0.7) K/uL Baso # (Auto) (0.0-0.1) K/uL Nucleated RBC % /100WBC Nucleated RBCs # K/uL Sodium 136 (136-146) mmol/L Potassium 4.0 (3.5-5.1) mmol/L Chloride 104 (98-110) mmol/L Carbon Dioxide 24 (21-31) mmol/L BUN 19 (6.0-23.0) mg/dL Creatinine 1.1 (0.6-1.5) mg/dL Est Cr Clr Drug Dosing 78.59 mL/min Estimated GFR (MDRD) > 60.0 ml/min Glucose 389 H (60-110) mg/dL POC Glucose 305 H 305 H (60-110) mg/dL Calcium 9.5 (8.8-10.8) mg/dL Med Orders - Current: Current Medications Acetaminophen (Tylenol) 650 mg PO Q4H PRN PRN Reason: Pain (Mild 1-3)/fever Amlodipine Besylate (Norvasc) 5 mg PO DAILY [facility] Last Admin: 11/09/17 11:49 Dose: 5 mg Aspirin (Halfprin) 81 mg PO DAILY [facility] Last Admin: 11/09/17 11:49 Dose: 81 mg Atorvastatin Calcium (Lipitor) 10 mg PO BEDTIME [facility] Last Admin: 11/08/17 20:22 Dose: 10 mg Heparin Sodium (Porcine) (Heparin Sodium) 5,000 units SUBCUT Q8H [facility] Last Admin: 11/09/17 11:51 Dose: 5,000 units Sodium Chloride (Normal Saline) 500 mls @ 999 mls/hr IV STAT [facility] Last Admin: 11/06/17 17:57 Dose: 999 mls/hr Insulin Aspart (Novolog) 0 unit SUBCUT TIDAC [facility] PRN Reason: Protocol Last Admin: 11/09/17 17:58 Dose: 12 units Ondansetron HCl (Zofran Odt) 4 mg PO Q4H PRN PRN Reason: nausea, able to take PO Ondansetron HCl (Zofran) 4 mg IVPUSH Q4H PRN PRN Reason: Nausea Discontinued Medications Gadobenate Dimeglumine (Multihance) 20 ml IVPUSH ONETIME STA Stop: 11/09/17 10:28 Last Admin: 11/09/17 12:47 Dose: Not Given Magnesium Sulfate 2 gm/ Premix 50 mls @ 25 mls/hr IV ONETIME ONE Stop: 11/07/17 09:11 Last Admin: 11/07/17 07:38 Dose: 25 mls/hr Insulin Aspart (Novolog) 0 unit SUBCUT TIDAC [facility] PRN Reason: Protocol Insulin Human Regular (Novolin R) 5 unit IVPUSH ONETIME ONE PRN Reason: Protocol Stop: 11/06/17 17:32 Last Admin: 11/06/17 17:57 Dose: 5 units Morphine Sulfate (Morphine) 2 mg IVPUSH Q2H PRN PRN Reason: Pain (severe 7-10) Stop: 11/07/17 19:53 *Q Meaningful Use (DIS) - VTE *Q VTE Criteria *Q: - Stroke *Q Stroke Criteria *Q: - AMI *Q AMI Criteria *Q:
[2017-11-09] MEDS: atorvaSTATin 10 MG Tab PO SCH (20:15)
--- NOTE | 2017-11-10 14:19 | ECHO ---
EXAM DATE: 11/08/17 PATIENT'S AGE: 57 The echocardiogram report can be seen in this patient's EMR (Electronic Medical Record) in the Reports section. The report has also been scanned into PACS. ASHISH
== END 2017-11-09 20:27 | disposition home or self-care (01) | DRG 69 ==
LOC: MW.ED 17:11 → MW.MS 18:44 → OBSVTOIN 11-08 09:28
PROVIDERS: ADMIT Family Medicine; ATTEND Family Medicine
DX: G45.8 Other transient cerebral ischemic attacks and related syndromes (principal); I69.354 Hemiplegia and hemiparesis following cerebral infarction affecting left non-dominant side; I10 Essential (primary) hypertension; E78.5 Hyperlipidemia, unspecified; E11.9 Type 2 diabetes mellitus without complications; Z79.899 Other long term (current) drug therapy; F17.200 Nicotine dependence, unspecified, uncomplicated
CPT/HCPCS: 36415; 70450; 70450-26; 70544; 70544-26; 70547; 70547-26; 70551; 70551-26; 71045; 71045-26; 80048; 80053; 80061; 81001; 82550; 82553; 82962; 83036; 83735; 84100; 84484; 85025; 85610; 93005; 93306; 96360; 96361; 96365; 96366; 96372; 96374; 99283; 99285-25; A9270-GY; A9577; G0378; J1644; J1815-GY ×2; J3475; J7040